=== PATIENT | female | born 2000 | race Caucasian/White ===

== ENCOUNTER 2018-07-01 18:51 | Outpatient (CLI) | payer OTHER ==
[2018-07-01 20:33] LABS: ADD UMIC YES; UR ASCORBIC ACID NEGATIVE (NEGATIVE); UR BACTERIA FEW /HPF (NONE SEEN); UR BILIRUBIN (Dip) NEGATIVE (NEGATIVE); UR BLOOD (Dip) 3+ mg/dL (NEGATIVE); UR CLARITY SLIGHTLY CLOUDY (CLEAR); UR COLOR YELLOW (YELLOW); UR GLUCOSE (Dip) NEGATIVE (NEGATIVE); UR KETONES (Dip) NEGATIVE (NEGATIVE); UR LEUKOCYTE ESTERASE (Dip) NEGATIVE Leu/ul (NEGATIVE); UR MUCUS FEW /HPF (NONE SEEN); UR NITRITE (Dip) NEGATIVE (NEGATIVE); UR RBC > 182 /HPF (0-5); UR SPECIFIC GRAVITY (Dip) 1.018 (1.003-1.030); UR SQUAMOUS EPITHELIAL CELL FEW /HPF (FEW); UR TOTAL PROTEIN (Dip) NEGATIVE (NEGATIVE); UR UROBILINOGEN (Dip) NEGATIVE (NEGATIVE); UR WBC 5 /HPF (0-5)
== END 2018-07-01 21:53 | disposition home or self-care (01) ==
LOC: OBT 18:51 → L-D 18:53 → OBT 21:53
DX: O26.893 Other specified pregnancy related conditions, third trimester (principal); Z3A.34 34 weeks gestation of pregnancy
CPT/HCPCS: 76818; 81001

== ENCOUNTER 2018-07-26 18:56 | Outpatient (CLI) | payer OTHER | END 2018-07-26 23:15 | disposition home or self-care (01) | LOC: OBT 18:56 → L-D 18:56 → OBT 23:15 | DX: O41.93X0 Disorder of amniotic fluid and membranes, unspecified, third trimester, not applicable or unspecified (principal); Z3A.35 35 weeks gestation of pregnancy | CPT/HCPCS: 76815; 76818 ==

== ENCOUNTER 2018-07-31 20:06 | Outpatient (CLI) | payer OTHER ==
[2018-07-31 20:56] LABS: ADD UMIC YES; UR ASCORBIC ACID NEGATIVE (NEGATIVE); UR BACTERIA FEW /HPF (NONE SEEN); UR BILIRUBIN (Dip) NEGATIVE (NEGATIVE); UR BLOOD (Dip) NEGATIVE (NEGATIVE); UR CALCIUM OXALATE CRYSTAL FEW /HPF (NONE SEEN); UR CLARITY CLOUDY (CLEAR); UR COLOR YELLOW (YELLOW); UR GLUCOSE (Dip) NEGATIVE (NEGATIVE); UR KETONES (Dip) NEGATIVE (NEGATIVE); UR LEUKOCYTE ESTERASE (Dip) TRACE Leu/ul (NEGATIVE); UR NITRITE (Dip) NEGATIVE (NEGATIVE); UR RBC 1 /HPF (0-5); UR SPECIFIC GRAVITY (Dip) 1.023 (1.003-1.030); UR SQUAMOUS EPITHELIAL CELL FEW /HPF (FEW); UR TOTAL PROTEIN (Dip) NEGATIVE (NEGATIVE); UR UROBILINOGEN (Dip) NEGATIVE (NEGATIVE); UR WBC 2 /HPF (0-5)
[2018-07-31 21:10] LABS: RUPTURE FETAL MEMBRANES NEGATIVE (NEGATIVE)
== END 2018-07-31 21:58 | disposition home or self-care (01) ==
LOC: OBT 20:06 → L-D 20:07 → OBT 21:58
DX: O60.03 Preterm labor without delivery, third trimester (principal); Z3A.39 39 weeks gestation of pregnancy
CPT/HCPCS: 76818; 81001; 84112

== ENCOUNTER 2018-08-02 11:26 | Inpatient (IN) | payer OTHER ==
[2018-08-02 12:30] LABS: RUPTURE FETAL MEMBRANES NEGATIVE (NEGATIVE)
[2018-08-02] MEDS ORDERED: MISOPROSTOL 200 MCG TAB PR (17:00)
[2018-08-02] MEDS ORDERED: CARBOPROST 250 MCG INJ IM (17:00)
[2018-08-02] MEDS ORDERED: LIDOCAINE 1% (MPF) 30 ML INJ INJ (17:00)
[2018-08-02] MEDS ORDERED: BUTORPHANOL 2 MG INJ IV (17:00)
[2018-08-02] MEDS ORDERED: OXYTOCIN 30 UNITS/LR 500 ML IV (17:00)
[2018-08-02] MEDS: LACTATED RINGER'S 1,000 ML IV (17:26)
[2018-08-02] MEDS: OXYTOCIN 30 UNITS/LR 500 ML IV (17:32)
[2018-08-02 17:58] LABS: ADD MAN DIFF? NO
[2018-08-02 18:01] LABS: WHITE BLOOD COUNT 12.4 10^3/ul (4.8-10.8)
[2018-08-02 18:01] LABS: BASOPHIL # 0.1 10^3/ul (0.0-0.1); BASOPHILS % 0.4 % (0.0-2.0); EOSINOPHILS # 0.1 10^3/ul (0.0-0.5); HEMATOCRIT 46.1 % (37.0-47.0); HEMOGLOBIN 14.9 g/dl (12.0-16.0); LYMPHOCYTES # 2.5 10^3/ul (0.8-2.9); LYMPHOCYTES % 19.8 % (18.0-55.0); MEAN CORPUSCULAR HEMOGLOBIN 30.1 pg (29.0-33.0); MEAN CORPUSCULAR HGB CONC 32.3 g/dl (32.0-37.0); MEAN CORPUSCULAR VOLUME 93.1 fl (72.0-104.0); MEAN PLATELET VOLUME 10.3 fl (7.4-10.4); MONOCYTE # 0.9 10^3/ul (0.3-0.9); MONOCYTES % 7.2 % (0.0-13.0); NEUTROPHIL # 8.8 10^3/ul (1.6-7.5); PLATELET COUNT 303 10^3/UL (140-415); RED BLOOD COUNT 4.95 10^6/ul (4.20-5.40); RED CELL DISTRIBUTION WIDTH 13.7 % (11.5-14.5)
[2018-08-02 18:05] LABS: INR 0.88; PT RATIO 0.9
[2018-08-02 20:49] LABS: RAPID PLASMA REAGIN NONREACTIVE (NR)
[2018-08-03] MEDS: LACTATED RINGER'S 1,000 ML IV ×4 (00:37→19:09)
[2018-08-03] MEDS ORDERED: KETOROLAC 30 MG INJ IV (07:30)
[2018-08-03] MEDS ORDERED: DIPHENHYDRAMINE 50 MG INJ IV ×2 (07:30→23:00)
[2018-08-03] MEDS ORDERED: HYDROmorphONE 0.5 MG/0.5 ML SYG IV ×2 (07:30)
[2018-08-03] MEDS ORDERED: NALOXONE (0.4 MG/ML) INJ IV (07:30)
[2018-08-03] MEDS: SOD CHLORIDE 0.9% 1,000 ML IV ×2 (15:13→15:14)
[2018-08-03] MEDS: FENTAnyl 2MCG/ML-ROPIV 0.2% 100 ML BAG EPI ×2 (15:45→21:01)
[2018-08-03] MEDS: ACETAMINOPHEN 325 MG TAB PO (16:12)
[2018-08-03] MEDS: OXYTOCIN 30 UNITS/LR 500 ML IV ×2 (22:39→22:41)
[2018-08-03] MEDS: MINERAL OIL LIGHT 10 ML VIAL TOP (22:42)
[2018-08-03] MEDS: METHYLERGONOVINE 0.2 MG INJ IM (22:43)
[2018-08-03] MEDS ORDERED: OXYTOCIN 30 UNITS/LR 500 ML IV (23:00)
[2018-08-03] MEDS ORDERED: METHYLERGONOVINE 0.2 MG INJ IM (23:00)
[2018-08-03] MEDS ORDERED: MISOPROSTOL 200 MCG TAB PR (23:00)
[2018-08-03] MEDS ORDERED: ONDANSETRON 4 MG INJ IV (23:00)
[2018-08-03] MEDS ORDERED: ZOLPIDEM 5 MG TAB PO (23:00)
[2018-08-03] MEDS ORDERED: CARBOPROST 250 MCG INJ IM (23:00)
[2018-08-03] MEDS: ONDANSETRON 4 MG INJ IV (23:20)
[2018-08-03] MEDS: DEXTROSE 5%-LR 1,000 ML IV (23:53)
[2018-08-04] MEDS: BENZOCAINE 20% 56 ML SPRAY TOP (01:38)
[2018-08-04] MEDS: ACETAMINOPHEN 325 MG TAB PO (01:38)
[2018-08-04] MEDS: WITCH HAZEL/GLYCERIN PAD PR (01:38)
[2018-08-04] MEDS: DIBUCAINE 1% 30 GM OINT TOP (01:38)
[2018-08-04] MEDS: LANOLIN 7 GM TUBE TOP (01:38)
[2018-08-04] MEDS ORDERED: OXYCODONE/ASPIRIN (4.88/325) TAB PO (07:30)
[2018-08-04 08:09] LABS: ADD MAN DIFF? NO
[2018-08-04 08:14] LABS: ABNORMAL IP MESSAGE 1; BASOPHIL # 0.1 10^3/ul (0.0-0.1); BASOPHILS % 0.2 % (0.0-2.0); EOSINOPHILS # 0.1 10^3/ul (0.0-0.5); EOSINOPHILS % 0.4 % (0.0-7.0); HEMATOCRIT 35.3 % (37.0-47.0); HEMOGLOBIN 11.4 g/dl (12.0-16.0); LYMPHOCYTES % 9.2 % (18.0-55.0); MEAN CORPUSCULAR HEMOGLOBIN 30.3 pg (29.0-33.0); MEAN CORPUSCULAR HGB CONC 32.3 g/dl (32.0-37.0); MEAN CORPUSCULAR VOLUME 93.9 fl (72.0-104.0); MONOCYTE # 1.9 10^3/ul (0.3-0.9); MONOCYTES % 8.8 % (0.0-13.0); NEUTROPHIL # 17.4 10^3/ul (1.6-7.5); NEUTROPHILS % 80.7 % (30.0-74.0); PLATELET COUNT 221 10^3/UL (140-415); RED BLOOD COUNT 3.76 10^6/ul (4.20-5.40); RED CELL DISTRIBUTION WIDTH 14.1 % (11.5-14.5)
[2018-08-04 08:14] LABS: WHITE BLOOD COUNT 21.6 10^3/ul (4.8-10.8)
[2018-08-04 08:19] LABS: POSITIVE DIFF @See below
[2018-08-04] MEDS: LACTATED RINGER'S 1,000 ML IV* ×2 (09:58→22:55)
[2018-08-04] MEDS: SENNA/DOCUSATE NA (8.6MG/50MG) TAB PO (09:58)
[2018-08-04] MEDS: PIPER-TAZO 3.375 GM IV (PMX) 100 ML IVPB ×2 (10:53→17:18)
[2018-08-04] MEDS: IBUPROFEN 600 MG TAB PO ×2 (12:22→17:18)
[2018-08-04 17:42] LABS: ADD UMIC YES; UR ASCORBIC ACID NEGATIVE (NEGATIVE); UR BILIRUBIN (Dip) NEGATIVE (NEGATIVE); UR BLOOD (Dip) 3+ mg/dL (NEGATIVE); UR CLARITY SLIGHTLY CLOUDY (CLEAR); UR COLOR YELLOW (YELLOW); UR GLUCOSE (Dip) NEGATIVE (NEGATIVE); UR KETONES (Dip) TRACE mg/dL (NEGATIVE); UR LEUKOCYTE ESTERASE (Dip) 2+ Leu/ul (NEGATIVE); UR NITRITE (Dip) NEGATIVE (NEGATIVE); UR RBC 99 /HPF (0-5); UR SPECIFIC GRAVITY (Dip) 1.009 (1.003-1.030); UR SQUAMOUS EPITHELIAL CELL FEW /HPF (FEW); UR TOTAL PROTEIN (Dip) NEGATIVE (NEGATIVE); UR UROBILINOGEN (Dip) NEGATIVE (NEGATIVE); UR WBC 42 /HPF (0-5)
[2018-08-04] MEDS: DEXTROSE 5%-LR 1,000 ML IV (22:55)
[2018-08-05] MEDS: IBUPROFEN 600 MG TAB PO ×3 (00:26→12:10)
[2018-08-05] MEDS: PIPER-TAZO 3.375 GM IV (PMX) 100 ML IVPB ×2 (01:55→12:10)
[2018-08-05] MEDS: DIPHTH/TET/ACEL PERTUSS (ADULT) 0.5 ML VIAL IM* (09:52)
[2018-08-05] MEDS: MEASLES,MUMPS,RUBELLA VACCINE INJ SC* (09:52)
[2018-08-05 11:08] LABS: ADD MAN DIFF? NO
[2018-08-05 11:12] LABS: BASOPHIL # 0.1 10^3/ul (0.0-0.1); BASOPHILS % 0.5 % (0.0-2.0); EOSINOPHILS # 0.3 10^3/ul (0.0-0.5); EOSINOPHILS % 2.1 % (0.0-7.0); HEMATOCRIT 38.8 % (37.0-47.0); HEMOGLOBIN 12.4 g/dl (12.0-16.0); LYMPHOCYTES # 2.1 10^3/ul (0.8-2.9); LYMPHOCYTES % 12.6 % (18.0-55.0); MEAN CORPUSCULAR HEMOGLOBIN 30.3 pg (29.0-33.0); MEAN CORPUSCULAR VOLUME 94.9 fl (72.0-104.0); MEAN PLATELET VOLUME 10.1 fl (7.4-10.4); MONOCYTE # 1.1 10^3/ul (0.3-0.9); MONOCYTES % 6.8 % (0.0-13.0); NEUTROPHIL # 12.5 10^3/ul (1.6-7.5); NEUTROPHILS % 77.1 % (30.0-74.0); PLATELET COUNT 254 10^3/UL (140-415); RED BLOOD COUNT 4.09 10^6/ul (4.20-5.40); RED CELL DISTRIBUTION WIDTH 14.6 % (11.5-14.5)
[2018-08-05 11:12] LABS: WHITE BLOOD COUNT 16.2 10^3/ul (4.8-10.8)
== END 2018-08-05 16:36 | disposition home or self-care (01) | DRG 807 ==
LOC: OBT 11:26 → PP1 08-04 00:37 → L-D 11:26 → OBT 14:25 → L-D 14:15
PROVIDERS: Obstetrics & Gynecology
PROC: 10E0XZZ Delivery of Products of Conception, External Approach (ICD-10-PCS; principal; 2018-08-03)
PROC: 0W8NXZZ Division of Female Perineum, External Approach (ICD-10-PCS; 2018-08-03)
PROC: 3E033VJ Introduction of Other Hormone into Peripheral Vein, Percutaneous Approach (ICD-10-PCS; 2018-08-03)
DX: O69.81X0 Labor and delivery complicated by cord around neck, without compression, not applicable or unspecified (principal); Z37.0 Single live birth; Z3A.39 39 weeks gestation of pregnancy
CPT/HCPCS: 62319; 76815; 76818; 81001; 84112; 85025; 85610; 85730; 86592; 86850; 86900; 86901; 90715

== ENCOUNTER 2019-03-14 19:47 | Outpatient (CLI) | payer OTHER ==
[2019-03-14 20:28] LABS: ADD UMIC YES; UR ASCORBIC ACID NEGATIVE (NEGATIVE); UR BACTERIA FEW /HPF (NONE SEEN); UR BILIRUBIN (Dip) NEGATIVE (NEGATIVE); UR BLOOD (Dip) 1+ mg/dL (NEGATIVE); UR BUDDING YEAST FEW /HPF (NONE SEEN); UR CLARITY CLOUDY (CLEAR); UR COLOR YELLOW (YELLOW); UR GLUCOSE (Dip) NEGATIVE (NEGATIVE); UR KETONES (Dip) NEGATIVE (NEGATIVE); UR LEUKOCYTE ESTERASE (Dip) 3+ Leu/ul (NEGATIVE); UR MUCUS FEW /HPF (NONE SEEN); UR NITRITE (Dip) NEGATIVE (NEGATIVE); UR RBC 19 /HPF (0-5); UR SPECIFIC GRAVITY (Dip) 1.025 (1.003-1.030); UR SQUAMOUS EPITHELIAL CELL MODERATE /HPF (FEW); UR TOTAL PROTEIN (Dip) 1+ mg/dl (NEGATIVE); UR UROBILINOGEN (Dip) NEGATIVE (NEGATIVE); UR WBC 30 /HPF (0-5)
== END 2019-03-14 21:15 | disposition home or self-care (01) ==
LOC: OBT 19:47 → L-D 19:49 → OBT 21:15
DX: O26.892 Other specified pregnancy related conditions, second trimester (principal); R30.0 Dysuria; Z3A.24 24 weeks gestation of pregnancy
CPT/HCPCS: 81001

== ENCOUNTER 2019-05-31 11:04 | Inpatient (IN) | payer OTHER ==
[2019-05-31] MEDS ORDERED: LIDOCAINE 1% (MPF) 30 ML INJ INJ (11:30)
[2019-05-31] MEDS ORDERED: MISOPROSTOL 200 MCG TAB PR ×2 (11:30→17:30)
[2019-05-31] MEDS ORDERED: CARBOPROST 250 MCG INJ IM ×2 (11:30→17:30)
[2019-05-31] MEDS ORDERED: METHYLERGONOVINE 0.2 MG INJ IM ×2 (11:30→17:30)
[2019-05-31] MEDS ORDERED: OXYTOCIN 30 UNITS/LR 500 ML IV ×3 (11:30→17:30)
[2019-05-31] MEDS ORDERED: BUTORPHANOL 2 MG INJ IV (11:30)
[2019-05-31 11:46] LABS: ADD MAN DIFF? NO
[2019-05-31] MEDS: LACTATED RINGER'S 1,000 ML IV ×2 (11:46→12:54)
[2019-05-31] MEDS: AMPICILLIN 2 GM/NS (PMX) 100 ML IV (11:47)
[2019-05-31 11:54] LABS: WHITE BLOOD COUNT 14.6 10^3/ul (4.8-10.8)
[2019-05-31 11:54] LABS: BASOPHIL # 0.1 10^3/ul (0.0-0.1); BASOPHILS % 0.4 % (0.0-2.0); EOSINOPHILS # 0.3 10^3/ul (0.0-0.5); EOSINOPHILS % 1.8 % (0.0-7.0); HEMATOCRIT 42.3 % (37.0-47.0); HEMOGLOBIN 12.9 g/dl (12.0-16.0); LYMPHOCYTES # 2.3 10^3/ul (0.8-2.9); LYMPHOCYTES % 15.5 % (18.0-55.0); MEAN CORPUSCULAR HEMOGLOBIN 26.1 pg (29.0-33.0); MEAN CORPUSCULAR HGB CONC 30.5 g/dl (32.0-37.0); MEAN CORPUSCULAR VOLUME 85.5 fl (72.0-104.0); MEAN PLATELET VOLUME 9.2 fl (7.4-10.4); MONOCYTE # 1.4 10^3/ul (0.3-0.9); MONOCYTES % 9.5 % (0.0-13.0); NEUTROPHIL # 10.5 10^3/ul (1.6-7.5); NEUTROPHILS % 71.4 % (30.0-74.0); PLATELET COUNT 369 10^3/UL (140-415); RED BLOOD COUNT 4.95 10^6/ul (4.20-5.40); RED CELL DISTRIBUTION WIDTH 14.1 % (11.5-14.5)
[2019-05-31] MEDS ORDERED: DIPHENHYDRAMINE 50 MG INJ IV ×2 (12:00→17:30)
[2019-05-31] MEDS ORDERED: NALOXONE (0.4 MG/ML) INJ IV (12:00)
[2019-05-31] MEDS ORDERED: HYDROmorphONE 0.5 MG/0.5 ML SYG IV ×2 (12:00)
[2019-05-31] MEDS ORDERED: FENTAnyl 2MCG/ML-ROPIV 0.2% 100 ML BAG EPI (12:00)
[2019-05-31] MEDS ORDERED: KETOROLAC 30 MG INJ IV (12:00)
[2019-05-31] MEDS ORDERED: ONDANSETRON 4 MG INJ IV ×2 (12:00→17:30)
[2019-05-31 12:12] LABS: INR 0.95; PROTIME 12.8 Sec (11.9-14.9)
[2019-05-31 12:13] LABS: PARTIAL THROMBOPLASTIN TIME 25.9 Sec (23.0-35.0)
[2019-05-31 15:22] LABS: RAPID PLASMA REAGIN NONREACTIVE (NR)
[2019-05-31] MEDS ORDERED: AMPICILLIN 1 GM/NS (PMX) 50 ML IV (15:30)
[2019-05-31] MEDS: OXYTOCIN 30 UNITS/LR 500 ML IV ×2 (15:45)
[2019-05-31] MEDS: LACTATED RINGER'S 1,000 ML IV* (17:09)
[2019-05-31] MEDS: DEXTROSE 5%-LR 1,000 ML IV ×2 (17:09→19:37)
[2019-05-31] MEDS ORDERED: ACETAMINOPHEN 325 MG TAB PO (17:30)
[2019-05-31] MEDS ORDERED: OXYCODONE/ASPIRIN (4.88/325) TAB PO (17:30)
[2019-05-31] MEDS ORDERED: ZOLPIDEM 5 MG TAB PO (17:30)
[2019-05-31] MEDS: IBUPROFEN 600 MG TAB PO ×2 (17:37→23:53)
[2019-05-31] MEDS: LANOLIN HPA 1 PKT TOP (17:37)
[2019-05-31] MEDS: DIBUCAINE 1% 30 GM OINT TOP (17:38)
[2019-05-31] MEDS: WITCH HAZEL/GLYCERIN PAD PR (17:38)
[2019-05-31] MEDS: BENZOCAINE 20% 56 ML SPRAY TOP (17:38)
[2019-05-31] MEDS: SENNA/DOCUSATE NA (8.6MG/50MG) TAB PO (20:51)
[2019-06-01] MEDS: LACTATED RINGER'S 1,000 ML IV* ×3 (01:09→17:09)
[2019-06-01] MEDS: IBUPROFEN 600 MG TAB PO ×4 (05:51→23:34)
[2019-06-01 08:00] LABS: ADD MAN DIFF? NO
[2019-06-01 08:04] LABS: ABNORMAL IP MESSAGE 1; BASOPHILS % 0.3 % (0.0-2.0); EOSINOPHILS # 0.4 10^3/ul (0.0-0.5); EOSINOPHILS % 2.4 % (0.0-7.0); HEMATOCRIT 36.1 % (37.0-47.0); LYMPHOCYTES # 2.9 10^3/ul (0.8-2.9); LYMPHOCYTES % 18.1 % (18.0-55.0); MEAN CORPUSCULAR HGB CONC 30.5 g/dl (32.0-37.0); MEAN CORPUSCULAR VOLUME 85.3 fl (72.0-104.0); MEAN PLATELET VOLUME 9.4 fl (7.4-10.4); MONOCYTE # 1.6 10^3/ul (0.3-0.9); MONOCYTES % 9.9 % (0.0-13.0); NEUTROPHIL # 10.9 10^3/ul (1.6-7.5); NEUTROPHILS % 68.3 % (30.0-74.0); PLATELET COUNT 316 10^3/UL (140-415); RED BLOOD COUNT 4.23 10^6/ul (4.20-5.40); RED CELL DISTRIBUTION WIDTH 14.3 % (11.5-14.5)
[2019-06-01 08:05] LABS: POSITIVE DIFF @See below
[2019-06-01] MEDS: DEXTROSE 5%-LR 1,000 ML IV ×2 (09:09→17:09)
[2019-06-01 19:49] LABS: ADD UMIC YES; UR ASCORBIC ACID NEGATIVE (NEGATIVE); UR BILIRUBIN (Dip) NEGATIVE (NEGATIVE); UR BLOOD (Dip) 3+ mg/dL (NEGATIVE); UR CLARITY SLIGHTLY CLOUDY (CLEAR); UR COLOR YELLOW (YELLOW); UR GLUCOSE (Dip) NEGATIVE (NEGATIVE); UR KETONES (Dip) NEGATIVE (NEGATIVE); UR LEUKOCYTE ESTERASE (Dip) 3+ Leu/ul (NEGATIVE); UR NITRITE (Dip) NEGATIVE (NEGATIVE); UR RBC > 182 /HPF (0-5); UR SQUAMOUS EPITHELIAL CELL MANY /HPF (FEW); UR TOTAL PROTEIN (Dip) NEGATIVE (NEGATIVE); UR UROBILINOGEN (Dip) NEGATIVE (NEGATIVE); UR WBC 49 /HPF (0-5)
[2019-06-01] MEDS: SENNA/DOCUSATE NA (8.6MG/50MG) TAB PO (21:51)
[2019-06-01] MEDS: CEPHALEXIN 500 MG CAP PO (23:34)
[2019-06-02] MEDS: CEPHALEXIN 500 MG CAP PO ×2 (05:38→11:51)
[2019-06-02] MEDS: IBUPROFEN 600 MG TAB PO ×2 (05:38→11:51)
[2019-06-02] MEDS: LANOLIN HPA 1 PKT TOP (08:50)
[2019-06-02] MEDS: SENNA/DOCUSATE NA (8.6MG/50MG) TAB PO (08:50)
[2019-06-02] MEDS: MAGNESIUM HYDROXIDE 30ML CUP PO (08:50)
[2019-06-02] MEDS: DIPHTH/TET/ACEL PERTUSS (ADULT) 0.5 ML VIAL IM* (09:00)
[2019-06-02] MEDS: MEASLES,MUMPS,RUBELLA VACCINE INJ SC* (09:00)
== END 2019-06-02 17:15 | disposition home or self-care (01) | DRG 807 ==
LOC: OBT 11:04 → L-D 11:04 → OBT 11:05 → L-D 11:05 → PP1 17:33
PROVIDERS: Obstetrics & Gynecology
PROC: 10E0XZZ Delivery of Products of Conception, External Approach (ICD-10-PCS; principal; 2019-05-31)
PROC: 0KQM0ZZ Repair Perineum Muscle, Open Approach (ICD-10-PCS; 2019-05-31)
DX: O42.013 Preterm premature rupture of membranes, onset of labor within 24 hours of rupture, third trimester (principal); Z37.0 Single live birth; Z3A.35 35 weeks gestation of pregnancy
CPT/HCPCS: 62322; 76815; 81001; 85025; 85610; 85730; 86592; 86850; 86900; 86901; 87086; 88307; 99464